=== PATIENT | female | born 1990 | race Caucasian/White ===

== ENCOUNTER → 2024-08-26 | Day surgery (SDC) | payer MEDICAID ==
[~2024-08-26] VITALS: Ht 157.5 cm; Wt 60.3 kg
[~2024-08-26] MED LIST: BUPIVACAINE HCL/PF 0.5% (5MG/ML) 10ML ONE; EPHEDRINE SULFATE 50MG/ML VIAL ONE; FAMOTIDINE 20MG/2ML VIAL IV ONE; FENTANYL CITRATE/PF 50MCG/ML 2ML VIAL ONE; GLYCOPYRROLATE 0.2 MG/ML 2ML VIAL ONE; HYDROMORPHONE HCL/PF 1MG/ML INJ ONE; LACTATED RINGERS 1,000 ML IV SCH; METOCLOPRAMIDE HCL 10MG/2ML VIAL ONE; MIDAZOLAM HCL 2 MG/2 ML VIAL ONE; NEOSTIGMINE METHYLSULFATE 1MG/ML 10 ML VIAL ONE; ONDANSETRON HCL 4MG/2ML INJ ONE; PROPOFOL 200MG/20ML VIAL IV ONE; ROCURONIUM BROMIDE 10MG/ML VIAL 5ML IV ONE; SKIN ADHESIVE 0.7 GM EA TOP ONE
[2024-08-26 07:06] LABS: UCG KIT LOT# 920134; UCG SCREEN NEGATIVE
[2024-08-26] MEDS: HYDROMORPHONE HCL/PF 1MG/ML INJ IV PRN (11:12)
[2024-08-26] MEDS: ONDANSETRON HCL 4MG/2ML INJ IV PRN (11:13)
[2024-08-26 14:06] VITALS: BP 114/67; PULSE 96; RESP 27
== END | disposition home or self-care (01) ==
LOC: OR 06:34
PROVIDERS: ATTEND Surgery
DX: K80.10 Calculus of gallbladder with chronic cholecystitis without obstruction (principal); Z79.899 Other long term (current) drug therapy; Z98.890 Other specified postprocedural states
CPT/HCPCS: 47562; 81025; 88304; J3010; J0665; J3490 ×4; J2765; J2250; J2405; J2704; J1171; J7030; J2710